=== PATIENT | male | born 1965 | race Caucasian/White ===

== ENCOUNTER 2018-08-12 15:27 | Inpatient (IN) | payer MEDICAID, OTHER ==
[~2018-08-12] VITALS: Ht 190.5 cm; Wt 80.0 kg
[2018-08-12 15:57] LABS: Basophils # (auto) 0.1 uL; Basophils % (auto) 1.2 % (0.0-2.0); Eosinophils # (auto) 0.1 uL; Eosinophils % (auto) 1.1 % (0.0-7.0); Hematocrit 48.9 % (41.0-53.0); Hemoglobin 16.4 g/dL (13.5-17.5); Lymphocytes # (auto) 1.2 uL; Lymphocytes % (auto) 18.3 % (10.0-50.0); Mean Corpuscular Hemoglobin 30.5 pg (28.0-32.0); Mean Corpuscular Hgb Conc. 33.5 g/dL (32.0-36.0); Mean Corpuscular Volume 90.9 fL (80.0-100.0); Monocytes # (auto) 0.8 uL; Monocytes % (auto) 12.7 % (0.0-12.0); Neutrophils # (auto) 4.2 uL; Neutrophils % (auto) 66.7 % (37.0-80.0); Nucleated Red Blood Cells % 0.1 %; Platelet Count (auto) 300 10^3/uL (140-450); Red Blood Cells 5.38 10^6/uL (4.5-5.90); Red Cell Distribution Width 14.9 % (11.8-14.3); White Blood Cell 6.3 10^3/uL (4.4-10.8)
[2018-08-12 16:24] LABS: Albumin 3.4 g/dL (3.4-5.0); Bilirubin, Total 1.5 mg/dL (0.2-1.0); Calcium 8.4 mg/dL (8.5-10.1); Magnesium 2.2 mg/dL (1.6-2.6); Potassium 4.5 mmol/L (3.5-5.1); Total Protein 6.7 g/dL (6.4-8.2)
[2018-08-12] MEDS ORDERED: ATOR20TA50 PO (17:28)
[2018-08-12] MEDS ORDERED: ENAL2.5T PO (17:28)
[2018-08-12] MEDS ORDERED: FURO40TA PO (17:28)
[2018-08-12] MEDS ORDERED: CAR3125T PO (17:28)
[2018-08-12] MEDS ORDERED: SODIUM CHLORIDE 0.9% 1,000 ML IV ONE (17:29)
[2018-08-12 19:03] LABS: INR 1.2 (0.9-1.15); Partial Thromboplastin Time 28.7 sec (23.78-33.04); Prothrombin Time 12.7 sec (9.27-12.13)
[2018-08-12 21:34] LABS: Urine Bacteria NONE SEEN /hpf (None Seen); Urine Blood Negative /uL (Negative); Urine Hyaline Cast FEW /lpf (0 - 2); Urine Mucus FEW (None Seen); Urine Specific Gravity 1.026 (1.001-1.035); Urine WBC 1 /hpf (0 - 3)
[2018-08-12 21:44] LABS: Amphetamine Screen, Urine POSITIVE (NEGATIVE); Barbiturate Scree,Urine NEGATIVE (NEGATIVE); Benzodiazephine Screen, Urine NEGATIVE (NEGATIVE); Cannabinoid Screen, Urine POSITIVE (NEGATIVE); Cocaine Screen, Urine NEGATIVE (NEGATIVE); Opiate Scree,Urine NEGATIVE (NEGATIVE); Phencyclidine Screen, Urine NEGATIVE (NEGATIVE)
[2018-08-12 22:05] LABS: Alcohol, Urine < 3.0 mg/dL (0-5)
[2018-08-12] MEDS ORDERED: ONDANSETRON HCL 4 MG/2 ML VIAL IV ONE (22:30)
[2018-08-12] MEDS ORDERED: MORPHINE SULFATE 4 MG/ML SYR/VIAL IV ONE (22:30)
[2018-08-12] MEDS ORDERED: guaiFENesin 200 MG/10 ML UD PO ONE (22:45)
[2018-08-13] MEDS ORDERED: ACETAMINOPHEN 500 MG TAB PO PRN (01:30)
[2018-08-13] MEDS ORDERED: ONDANSETRON HCL 4 MG/2 ML VIAL IV PRN (01:30)
[2018-08-13] MEDS ORDERED: IBUPROFEN 400 MG TAB PO PRN (01:30)
[2018-08-13 05:26] LABS: Basophils # (auto) 0.1 uL; Basophils % (auto) 1.1 % (0.0-2.0); Eosinophils # (auto) 0 uL; Eosinophils % (auto) 0.5 % (0.0-7.0); Hematocrit 46.7 % (41.0-53.0); Hemoglobin 15.3 g/dL (13.5-17.5); Lymphocytes % (auto) 16.8 % (10.0-50.0); Mean Corpuscular Hemoglobin 29.8 pg (28.0-32.0); Mean Corpuscular Hgb Conc. 32.7 g/dL (32.0-36.0); Monocytes # (auto) 0.7 uL; Monocytes % (auto) 11.6 % (0.0-12.0); Neutrophils # (auto) 4.2 uL; Nucleated Red Blood Cells % 0.1 %; Platelet Count (auto) 260 10^3/uL (140-450); Red Blood Cells 5.13 10^6/uL (4.5-5.90); Red Cell Distribution Width 15.3 % (11.8-14.3)
[2018-08-13 05:46] LABS: Calcium 7.9 mg/dL (8.5-10.1); Potassium 4.9 mmol/L (3.5-5.1)
[2018-08-13 05:48] LABS: BUN/Creatinine Ratio 24.8
[2018-08-13] MEDS: FUROSEMIDE 40 MG/4 ML VIAL IV SCH ×2 (07:30→18:00)
[2018-08-13] MEDS: CARVEDILOL 3.125 MG TAB PO SCH ×2 (07:40→18:00)
[2018-08-13] MEDS ORDERED: FUROSEMIDE 40 MG/4 ML VIAL IV SCH (10:00)
[2018-08-13] MEDS: ENALAPRIL MALEATE 2.5 MG TAB PO SCH (10:00)
[2018-08-13] MEDS ORDERED: INFLUENZA QUAD 2018-2019 0.5 ML SYRG IM ONE (10:30)
[2018-08-13] MEDS ORDERED: PNEUMOCOCCAL VACC POLYS 25 MCG/0.5 ML VIAL IM ONE (10:30)
[2018-08-13] MEDS: LORazepam 0.5 MG TAB PO PRN ×2 (10:53→19:13)
[2018-08-13 13:00] VITALS: BP 127/89
[2018-08-13 17:00] VITALS: BP 103/83
[2018-08-13] MEDS ORDERED: FUROSEMIDE 40 MG/4 ML VIAL IV ONE (20:00)
[2018-08-13] MEDS: LEVALBUTEROL HCL 1.25 MG/3 ML NEB NEB PRN (20:28)
[2018-08-13 21:19] LABS: BUN/Creatinine Ratio 20.8; Calcium 8.4 mg/dL (8.5-10.1)
[2018-08-13 21:30] LABS: Potassium 5.6 mmol/L (3.5-5.1)
[2018-08-13 21:48] VITALS: BP 114/65
[2018-08-13] MEDS ORDERED: ATORVASTATIN 20 MG TAB PO SCH (22:00)
[2018-08-13] MEDS ORDERED: DEXTROSE (50%) 50ML SYRG IV ONE (22:45)
[2018-08-13] MEDS ORDERED: DEXTROSE (50%) 50ML SYRG IV PRN (22:45)
[2018-08-13] MEDS ORDERED: SODIUM POLYSTYRENE SULF 15GM/60ML SUSP PO ONE (22:45)
[2018-08-13] MEDS ORDERED: InsuLIN REG 1unit/0.01ml Soln (100units/ml) IV ONE (22:45)
[2018-08-13] MEDS ORDERED: MORPHINE SULFATE 4 MG/ML SYR/VIAL IV ONE (22:45)
[2018-08-13 23:15] VITALS: BP 97/74
[2018-08-13] MEDS ORDERED: ETOMIDATE (2MG/ML) 20ML VIAL IV ONE (23:17)
[2018-08-13] MEDS ORDERED: SUCCINYLCHOLINE CHLORIDE 20 MG/ML 10ML VIAL IV ONE (23:17)
[2018-08-13] MEDS ORDERED: MIDAZOLAM DRIP 50 mg/50mL 0 ML IV ONE (23:18)
[2018-08-13 23:30] VITALS: BP 98/66
[2018-08-13] MEDS ORDERED: MIDAZOLAM DRIP 50 mg/50mL 50 ML IV SCH (23:44)
[2018-08-13 23:45] VITALS: BP 100/79
[2018-08-13] MEDS ORDERED: NOREPINEPHRINE 8 MG/250ML KIT 250 ML IV SCH (23:45)
[2018-08-14] VITALS (72 sets, daily range): BP systolic 74–133; BP diastolic 34–107
[2018-08-14] MEDS: ACCU-CHEK COMFORT CURVE STRIP VI SCH ×5 (01:00→03:00)
[2018-08-14 03:53] LABS: Basophils # (auto) 0.1 uL; Basophils % (auto) 0.6 % (0.0-2.0); Eosinophils # (auto) 0 uL; Eosinophils % (auto) 0.1 % (0.0-7.0); Hematocrit 47.7 % (41.0-53.0); Hemoglobin 15.7 g/dL (13.5-17.5); Lymphocytes # (auto) 0.8 uL; Lymphocytes % (auto) 8.6 % (10.0-50.0); Mean Corpuscular Hemoglobin 29.5 pg (28.0-32.0); Mean Corpuscular Hgb Conc. 32.8 g/dL (32.0-36.0); Mean Corpuscular Volume 89.9 fL (80.0-100.0); Monocytes # (auto) 1.4 uL; Monocytes % (auto) 15.7 % (0.0-12.0); Neutrophils # (auto) 6.9 uL; Nucleated Red Blood Cells % 0.1 %; Platelet Count (auto) 268 10^3/uL (140-450); Red Blood Cells 5.31 10^6/uL (4.5-5.90); Red Cell Distribution Width 14.8 % (11.8-14.3); White Blood Cell 9.2 10^3/uL (4.4-10.8)
[2018-08-14 04:12] LABS: Albumin 3.1 g/dL (3.4-5.0); BUN/Creatinine Ratio 26.1; Bilirubin, Total 1.7 mg/dL (0.2-1.0); Calcium 8.5 mg/dL (8.5-10.1); Potassium 5.4 mmol/L (3.5-5.1); Total Protein 5.5 g/dL (6.4-8.2)
[2018-08-14] MEDS: FUROSEMIDE 40 MG/4 ML VIAL IV SCH ×2 (06:32→18:00)
[2018-08-14] MEDS: CARVEDILOL 3.125 MG TAB PO SCH ×2 (08:44→18:00)
[2018-08-14] MEDS: ENALAPRIL MALEATE 2.5 MG TAB PO SCH (10:00)
[2018-08-14] MEDS: MORPHINE SULFATE 4 MG/ML SYR/VIAL IV PRN (11:26)
[2018-08-14] MEDS ORDERED: MIDODRINE HCL 10 MG TAB PO ONE (16:06)
[2018-08-14] MEDS: MIDODRINE HCL 10 MG TAB PO SCH (16:15)
[2018-08-14] MEDS ORDERED: PHENYLEPHRINE INJ 20 MG in D5W 5% 250 ML IV SCH (16:15)
[2018-08-14 21:46] LABS: Calcium 7.2 mg/dL (8.5-10.1); Magnesium 1.7 mg/dL (1.6-2.6); Potassium 4.2 mmol/L (3.5-5.1)
[2018-08-14] MEDS ORDERED: NALOXONE HCL 0.4 MG/ML VIAL IV ONE (23:15)
[2018-08-14] MEDS: MAGNESIUM SULFATE 1GM/100ML 100 ML IV SCH (23:20)
[2018-08-15] MEDS: MAGNESIUM SULFATE 1GM/100ML 100 ML IV SCH (00:38)
[2018-08-15 05:00] VITALS: BP 100/46
[2018-08-15] MEDS: FUROSEMIDE 40 MG/4 ML VIAL IV SCH ×2 (05:53→17:39)
[2018-08-15] MEDS: MIDODRINE HCL 10 MG TAB PO SCH ×3 (05:54→17:14)
[2018-08-15 06:02] LABS: Basophils # (auto) 0 uL; Basophils % (auto) 0.1 % (0.0-2.0); Eosinophils # (auto) 0.1 uL; Eosinophils % (auto) 0.6 % (0.0-7.0); Hematocrit 46.6 % (41.0-53.0); Hemoglobin 15.7 g/dL (13.5-17.5); Lymphocytes # (auto) 0.8 uL; Lymphocytes % (auto) 6.7 % (10.0-50.0); Mean Corpuscular Hemoglobin 30.1 pg (28.0-32.0); Mean Corpuscular Hgb Conc. 33.6 g/dL (32.0-36.0); Mean Corpuscular Volume 89.5 fL (80.0-100.0); Monocytes # (auto) 1.7 uL; Monocytes % (auto) 14.2 % (0.0-12.0); Neutrophils # (auto) 9.1 uL; Neutrophils % (auto) 78.4 % (37.0-80.0); Nucleated Red Blood Cells % 0.1 %; Platelet Count (auto) 277 10^3/uL (140-450); Red Cell Distribution Width 15.1 % (11.8-14.3); White Blood Cell 11.6 10^3/uL (4.4-10.8)
[2018-08-15 06:17] LABS: Magnesium 2.4 mg/dL (1.6-2.6); Phosphorus 4.5 mg/dL (2.5-4.90)
[2018-08-15 06:18] LABS: BUN/Creatinine Ratio 27.3; Bilirubin, Total 0.9 mg/dL (0.2-1.0); Calcium 7.9 mg/dL (8.5-10.1); Potassium 4.6 mmol/L (3.5-5.1); Total Protein 5.8 g/dL (6.4-8.2)
[2018-08-15 08:00] VITALS: BP 108/72
[2018-08-15 09:00] VITALS: BP 108/72
[2018-08-15] MEDS: MORPHINE SULFATE 4 MG/ML SYR/VIAL IV PRN (10:29)
[2018-08-15] MEDS: CARVEDILOL 3.125 MG TAB PO SCH ×2 (10:31→17:15)
[2018-08-15 13:00] VITALS: BP 98/76
[2018-08-15] MEDS ORDERED: AMIODARONE HCL 200 MG TAB PO ONE (13:30)
[2018-08-15 17:00] VITALS: BP 97/66
[2018-08-15] MEDS ORDERED: LEVALBUTEROL HCL 1.25 MG/3 ML NEB ONE (19:04)
[2018-08-15] MEDS: LEVALBUTEROL HCL 1.25 MG/3 ML NEB NEB PRN (19:14)
[2018-08-15] MEDS: LORazepam 0.5 MG TAB PO PRN (20:02)
[2018-08-15] MEDS: AMIODARONE HCL 200 MG TAB PO SCH (21:14)
[2018-08-15] MEDS: MAGNESIUM OXIDE 400 MG TAB PO SCH (21:14)
[2018-08-15 22:00] VITALS: BP 103/74
[2018-08-15] MEDS ORDERED: MAGNESIUM OXIDE 400 MG TAB PO SCH (22:00)
[2018-08-16 05:00] VITALS: BP 114/70
[2018-08-16] MEDS: LORazepam 0.5 MG TAB PO PRN (05:09)
[2018-08-16 05:42] LABS: Calcium 7.8 mg/dL (8.5-10.1); Potassium 4.3 mmol/L (3.5-5.1)
[2018-08-16] MEDS: MIDODRINE HCL 10 MG TAB PO SCH ×2 (05:47→12:00)
[2018-08-16] MEDS: FUROSEMIDE 40 MG/4 ML VIAL IV SCH (05:47)
[2018-08-16] MEDS: CARVEDILOL 3.125 MG TAB PO SCH (08:00)
[2018-08-16] MEDS: MAGNESIUM OXIDE 400 MG TAB PO SCH (08:51)
[2018-08-16 09:23] VITALS: BP 95/71
[2018-08-16] MEDS: AMIODARONE HCL 200 MG TAB PO SCH (10:00)
[2018-08-16 10:31] LABS: Hepatitis A Ab IgM Negative; Hepatitis B Core IgM Negative; Hepatitis B Surface Antigen Negative (Negative); Hepatitis C Antibody Negative (Negative)
[2018-08-16] MEDS ORDERED: FURO40TA PO (11:03)
[2018-08-16] MEDS ORDERED: AMI200T PO (11:03)
[2018-08-16] MEDS ORDERED: MAGN400T21 PO (11:03)
[2018-08-16 11:26] VITALS: BP 95/71
== END 2018-08-16 12:50 | disposition hospice, home (50) | DRG 194 ==
LOC: ER 15:27 → TELE 15:28 → TELE-WESTW 08-13 08:33 → ICU WEST 08-13 23:03 → TELE-WESTW 08-14 23:34
PROVIDERS: ADMIT Nurse Practitioner Family; ATTEND Internal Medicine
DX: I13.0 Hypertensive heart and chronic kidney disease with heart failure and stage 1 through stage 4 chronic kidney disease, or unspecified chronic kidney disease (principal); N17.0 Acute kidney failure with tubular necrosis; E87.2 Acidosis; E86.0 Dehydration; I42.0 Dilated cardiomyopathy; E44.1 Mild protein-calorie malnutrition; E87.5 Hyperkalemia; I48.91 Unspecified atrial fibrillation; N18.3 Chronic kidney disease, stage 3 (moderate); I50.43 Acute on chronic combined systolic (congestive) and diastolic (congestive) heart failure; R06.03 Acute respiratory distress; E78.5 Hyperlipidemia, unspecified; F12.90 Cannabis use, unspecified, uncomplicated; F15.10 Other stimulant abuse, uncomplicated; F17.200 Nicotine dependence, unspecified, uncomplicated; F41.9 Anxiety disorder, unspecified; F19.10 Other psychoactive substance abuse, uncomplicated; Z88.6 Allergy status to analgesic agent; Z68.22 Body mass index [BMI] 22.0-22.9, adult; Z23 Encounter for immunization; Z71.89 Other specified counseling
CPT/HCPCS: 36415; 36600; 71045; 71046; 76705; 78582; 80048; 80053; 80074; 80307; 81001; 82310; 82805; 82962; 83735; 83880; 84100; 84132; 84443; 84484; 85025; 85379; 85610; 85730; 87081; 90674; 93005; 93306; 94640; 96374; 96375; J0330; J1815; J2250; J2405; J7060

== ENCOUNTER 2024-09-16 03:08 | Inpatient (IN) | payer MEDICAID ==
[~2024-09-16] VITALS: Ht 190.5 cm; Wt 97.4 kg
[2024-09-16] VITALS (8 sets, daily range): BP systolic 100–120; BP diastolic 46–78; PULSE 107–124; RESP 14–22; TEMP 97.6–97.8; O2SAT 93–99
[~2024-09-16 03:08] MED LIST: AMIO200T13 PO; ATOR20TA50 PO; CAR3125T PO; ENAL1TAB42 PO; FURO1TAB31 PO; MAGN241.4 PO
--- NOTE | 2024-09-16 04:30 | ED.PDOC ---
History of Present Illness HPI Comments 58 y/o M, with a Hx of CHF, CKF, and tobacco and former EtOH and methamphetamine use, presents with c/o shortness of breath and cough for 1 month. Patient endorses on progressively worsening symptoms since initial unprovoked onset. Patient comments on further on being unable to sleep, due to excessive coughing, last night. Patient also c/o bilateral leg swelling following recent ED visit at [facility] for same symptoms 2x week ago s/p given "fluids" then. Patient admits to [facility] medication compliancy. Patient comments on no recent stress, injuries, sick contact, travel, spoiled food intake, or substance use/exposure aside from cigarettes use, yesterday. Patient endorses on no further relevant or pertinent past medical, surgical, or family Hx. Patient denies having any chest pain, hemoptysis, dyspnea, nausea, vomiting, fever, chills, or other associated symptoms or modifiers at this time. Chief Complaint: Shortness of Breath Time Seen by MD: 04:05 Reviewed Notes: Nurses Notes, Medications, Allergies Allergies: Coded Allergies: NO KNOWN ALLERGIES (Unverified , 12/08/23) Information Source: Patient Mode of Arrival: Ambulatory Severity: Moderate Timing: Months Duration: Since onset Prehospital treatment: None Past Medical History PAST MEDICAL HISTORY: CHF, CKF Surgical History: Denies all surgeries Family History Family History: Unknown Social History Smoker: Cigarettes Alcohol: Denies ETOH Use, Sober Drugs: Denies Drug Use, Methamphetamine (former use, last intake >10 years) Lives In: Home Constitutional: denies: chills, diaphoresis, fatigue, fever, malaise, sweats, weakness, others EENTM: denies: blurred vision, double vision, ear bleeding, ear discharge, ear drainage, ear pain, ear ringing, eye pain, eye redness, hearing loss, mouth pain, mouth swelling, nasal discharge, nose bleeding, nose congestion, nose pain, photophobia, tearing, throat pain, throat swelling, voice changes, others Respiratory: reports: cough, shortness of breath; denies: hemoptysis, orthopnea, SOB at rest, SOB with excertion, stridor, wheezing, others Cardiovascular: denies: chest pain, dizzy spells, diaphoresis, Dyspnea on exertion, edema, irregular heart beat, left arm pain, lightheadedness, palpitations, PND, syncope, others Gastrointestinal: denies: abdomen distended, abdominal pain, blood streaked bowels, constipated, diarrhea, dysphagia, difficulty swallowing, hematemesis, melena, nausea, poor appetite, poor fluid intake, rectal bleeding, rectal pain, vomiting, others Genitourinary: denies: burning, dysuria, flank pain, frequency, hematuria, incontinence, penile discharge, penile sore, pain, testicle pain, testicle swelling, urgency, others Neurological: denies: dizziness, fainting, headache, left sided numbness, left sided weakness, numbness, paresthesia, pre-existing deficit, right sided numbness, right sided weakness, seizure, speech problems, tingling, tremors, weakness, others Musculoskeletal: reports: others (bilateral leg swelling); denies: back pain, gout, joint pain, joint swelling, muscle pain, muscle stiffness, neck pain Integumetry: denies: bruises, change in color, change in hair/nails, dryness, laceration, lesions, lumps, rash, wounds, others Allergic/Immunocompromised: denies: Difficulty Healing, Frequent Infections, Hives, Itching, others Hematologic/Lymphatic: denies: anemia, blood clots, easy bleeding, easy bruising, swollen glands, others Endocrine: denies: excessive hunger, excessive sweating, excessive thirst, excessive urination, flushing, intolerance to cold, intolerance to heat, unexplained weight gain, unexplained weight loss, others Psychiatric: denies: anxiety, bipolar disorder, depression, hopeless, panic disorder, schizophrenia, sleepless, suicidal, others All Other Systems: Reviewed and Negative Physical Exam General Appearance: Moderate Distress HEENT: Normal ENT Inspection, Pharynx Normal, TMs Normal Neck: Full Range of Motion, Non-Tender, Normal, Normal Inspection Respiratory: Other (Coarse breath sounds) Cardiovascular: No Edema, No JVD, No Murmur, No Gallop, Normal Peripheral Pulses, Regular Rate/Rhythm Breast Exam: Deferred Gastrointestinal: No Organomegaly, Non Tender, No Pulsatile Mass, Normal Bowel Sounds, Soft Genitalia: Deferred Pelvic: Deferred Rectal: Deferred Extremities: Swelling (Mild bilateral lower extremity) Musculoskeletal : Apperance: Normal Neurologic: Alert, certified novell engineer II-XII nml as Tested, No Motor Deficits, Normal Affect, Normal Mood, No Sensory Deficits Cerebellar Function: NOT DONE Reflexes: NOT DONE Skin: Dry, Normal Color, Warm Peripheral Pulses: 3+ Radial (R), 3+ Radial (L) Lymphatic: No Adenopathy Was a procedure done? Was a procedure done?: No Differential Dx Considerations may include: CHF exacerbation, bronchitis, Covid19, PNA, URI, viral syndrome X-Ray, Labs, Meds, VS Vital Signs Date Time Temp Pulse Resp B/P (MAP) Pulse Ox O2 Delivery O2 Flow Rate FiO2 09/16/24 04:20 97.9 62 18 105/72 (83) 95 97.9 09/16/24 04:20 Room Air* 0 21 09/16/24 03:23 97.5 64 20 104/77 (86) 99 Patient alert. Complaining of shortness a breath. Vitals stable. Answering all questions. Bilateral lower extremity swelling. Was given Lasix. Used to use drugs. Counseled patient on effects of smoking cigarettes for 15 minutes. Reviewed his previous visit. EKG reviewed does not show any acute changes. Explained to the patient about the treatment plan. Time of 1ST Reevaluation: 04:35 Reevaluation 1ST: Unchanged Patient Education/Counseling: Diagnosis, Treatment Family Education/Counseling: No Family Present Departure 1 Departure Time of Disposition: 04:34 Impression: Primary Impression: CHF (congestive heart failure) Qualified Codes: I50.43 - Acute on chronic combined systolic (congestive) and diastolic (congestive) heart failure Disposition: ADMITTED INPATIENT Admit to: Med Surg Condition: Guarded Critical Care Note Critical Care Time?: No Stability Stability form required: No Heart Score Heart Score: Heart Score Response (Comments) Value History Moderate Suspicious 1 EKG Normal 0 Age 45-64 1 Risk Factors 1 or 2 risk factors 1 Troponin Normal limit 0 Total 3 I personally scribed for CHIP BANUELOS MD ([email or web address]) on 09/16/24 at 04:30. Electronically submitted by Robbin Acharya ([email or web address]). CHIP BANUELOS MD Sep 16, 2024 04:30
[2024-09-16] MEDS: FUROSEMIDE 40 MG/4 ML VIAL IV ONE (04:54)
[2024-09-16 04:55] LABS: Basophils # (auto) 0.1 10 ^3/uL (0-0.2); Basophils % (auto) 1.5 % (0.0-2.0); Eosinophils # (auto) 0.1 10 ^3/uL (0-0.8); Eosinophils % (auto) 1.8 % (0.0-7.0); Hematocrit 49.4 % (41.0-53.0); Hemoglobin 15.9 g/dL (13.5-17.5); Lymphocytes # (auto) 0.9 10 ^3/uL (0.4-5.4); Lymphocytes % (auto) 15.1 % (10.0-50.0); Mean Corpuscular Hemoglobin 30.5 pg (28.0-32.0); Mean Corpuscular Hgb Conc. 32.1 g/dL (32.0-36.0); Monocytes # (auto) 0.7 10 ^3/uL (0-1.3); Monocytes % (auto) 12.9 % (0.0-12.0); Neutrophils % (auto) 68.7 % (37.0-80.0); Platelet Count (auto) 198 10^3/uL (140-450); Red Cell Distribution Width 14.8 % (11.8-14.3); White Blood Cell 5.8 10^3/uL (4.4-10.8)
[2024-09-16 04:58] LABS: Chloride 106 mmol/L (98-107); Potassium 4.8 mmol/L (3.5-5.1); Sodium 137 mmol/L (136-145)
[2024-09-16 04:59] LABS: Anion Gap 6 (5-15); Calcium 9.6 mg/dL (8.7-10.4); Carbon Dioxide 25 mmol/L (20-31)
[2024-09-16 05:04] LABS: BUN/Creatinine Ratio 19.3 (10.0-20.0); Blood Urea Nitrogen 32 mg/dL (9-23); Glucose 90 mg/dL (74-106)
--- NOTE | 2024-09-16 06:05 | DVH ---
CHEST RADIOGRAPH Indication:sob Technique: Single frontal view of the chest was obtained Comparison: None FINDINGS: Lines and Tubes: None Lungs: Left basilar opacity. Pleura: No effusion. No pneumothorax. Cardiomediastinal contours: Cardiomegaly. Bones: No acute osseous abnormality. IMPRESSION: 1. Left basilar opacity which may reflect atelectasis or infiltrate. 2. Cardiomegaly.
[2024-09-16] MEDS ORDERED: TEMAZEPAM 15 MG CAP PO PRN (07:15)
[2024-09-16] MEDS ORDERED: ONDANSETRON HCL 4 MG/2 ML VIAL IV PRN (07:15)
[2024-09-16] MEDS ORDERED: ALBUTEROL SULF 2.5 MG/0.5ML(0.5%) NEB SOLN NEB PRN (07:15)
[2024-09-16] MEDS ORDERED: MORPHINE SULFATE INJ 2 MG/ml SYRG IV PRN (07:15)
[2024-09-16] MEDS ORDERED: NITROGLYCERIN 0.4 MG SL TAB SL PRN (07:15)
[2024-09-16] MEDS ORDERED: ACETAMINOPHEN 325 MG TAB PO PRN (07:15)
--- NOTE | 2024-09-16 07:22 | DVHHP2 ---
History of Present Illness Reason for Visit: Shortness of breath History of Present Illness 58-year-old male presents for evaluation of shortness for breath. Patient reports a two week history of worsening shortness of breath with a constant cough. He also reports bilateral lower extremity swelling. Denies fever or chills. No other acute complaints reported. Past Medical History Chronic kidney disease and congestive heart failure Past Surgical History Denies Family History Noncontributory Smoke: <1 pack per day ALCOHOL: rare Drugs: Other (Methamphetamine) Review of Systems Review of Systems Review of systems are currently negative otherwise addressed in HPI. Allergies: Coded Allergies: NO KNOWN ALLERGIES (Unverified , 12/08/23) Exam Vital Signs Vital Signs Date Time Temp Pulse Resp B/P (MAP) Pulse Ox O2 Delivery O2 Flow Rate FiO2 09/16/24 06:00 121 17 127/44 (71) 100 09/16/24 05:42 97.8 97.8 09/16/24 05:42 Room Air* 0 21 Exam Gen: 58-year-old male in mild distress Skin: Warm, dry, normal color and texture, no rash. HEENT: Normocephalic atraumatic, mucous membranes moist and pink. Neck: Cervical and supraclavicular nodes normal without enlargement, trachea is midline, thyroid gland is normal without masses. Pulmonary: Clear to auscultation and percussion bilaterally. Cardiac: Regular rate and rhythm. No murmur Abdomen: Soft, nontender, nondistended, bowel sounds present all 4 quadrants, no guarding, no rigidity, no organomegaly. Extremities: No cyanosis, clubbing, bilateral lower extremity edema Neuro: Cranial nerves II through XII grossly intact, normal affect and speech, no focal motor deficits. Labs/Xrays ORDERING PHYSICIAN: CHIP BANUELOS MD PROCEDURE(s): CXRP - CHEST PORTABLE REASON: sob ORDER NUMBER(s): [id number], ACCESSION NUMBER(s): [id number] CHEST RADIOGRAPH Indication:sob Technique: Single frontal view of the chest was obtained Comparison: None FINDINGS: Lines and Tubes: None Lungs: Left basilar opacity. Pleura: No effusion. No pneumothorax. Cardiomediastinal contours: Cardiomegaly. Bones: No acute osseous abnormality. IMPRESSION: 1. Left basilar opacity which may reflect atelectasis or infiltrate. 2. Cardiomegaly. Labs Test 09/16/24 04:30 Range/Units White Blood Count 5.8 4.4-10.8 10^3/uL Red Blood Count 5.20 4.5-5.90 10^6/uL Hemoglobin 15.9 13.5-17.5 g/dL Hematocrit 49.4 41.0-53.0 % Mean Corpuscular Volume 95.0 80.0-100.0 fL Mean Corpuscular Hemoglobin 30.5 28.0-32.0 pg Mean Corpuscular Hemoglobin Concent 32.1 32.0-36.0 g/dL Red Cell Distribution Width 14.8 H 11.8-14.3 % Platelet Count 198 140-450 10^3/uL Mean Platelet Volume 9.6 6.9-10.8 fL Neutrophils (%) (Auto) 68.7 37.0-80.0 % Lymphocytes (%) (Auto) 15.1 10.0-50.0 % Monocytes (%) (Auto) 12.9 H 0.0-12.0 % Eosinophils (%) (Auto) 1.8 0.0-7.0 % Basophils (%) (Auto) 1.5 0.0-2.0 % Neutrophils # (Auto) 4.0 1.6-8.6 10 ^3/uL Lymphocytes # (Auto) 0.9 0.4-5.4 10 ^3/uL Monocytes # (Auto) 0.7 0-1.3 10 ^3/uL Eosinophils # (Auto) 0.1 0-0.8 10 ^3/uL Basophils # (Auto) 0.1 0-0.2 10 ^3/uL Nucleated Red Blood Cells 0.0 % Sodium Level 137 136-145 mmol/L Potassium Level 4.8 3.5-5.1 mmol/L Chloride Level 106 98-107 mmol/L Carbon Dioxide Level 25 20-31 mmol/L Anion Gap 6 5-15 Blood Urea Nitrogen 32 H 9-23 mg/dL Creatinine 1.66 H 0.700-1.30 mg/dL Glomerular Filtration Rate Calc 47 >90 mL/min BUN/Creatinine Ratio 19.3 10.0-20.0 Serum Glucose 90 74-106 mg/dL Calcium Level 9.6 8.7-10.4 mg/dL Troponin I High Sensitivity 42 </=54 ng/L B-Type Natriuretic Peptide 3965.39 0-100 pg/mL Assessment/Plan Assessment/Plan Assessment Acute on chronic congestive heart failure Chronic kidney disease ? Community-acquired pneumonia Respiratory distress Plan Admit the patient to telemetry to the hospitalist Cardiology consultation Echocardiogram pending Resume home medications IV Lasix Continue treatment per orders. Plan discussed with: Patient My Orders Orders - LIS DIANE Procedure Category Date Status Time * Cardiology Consult CONS 09/16/24 Verified 07:13 Date of Service: Sep 16, 2024 Billing Provider: LIS DIANE Common Visit Codes: [id number] INP/OBS CARE (HIGH) LIS DIANE Sep 16, 2024 07:22
[2024-09-16 07:32] LABS: Urine Bacteria None Seen /hpf (None Seen)
[2024-09-16 07:45] LABS: Urine Blood Negative /uL (Negative); Urine Clarity Clear (Clear); Urine Color Yellow (Yellow); Urine Hyaline Cast MOD /lpf (0 - 2); Urine Protein, UAD 1+ (Negative); Urine Specific Gravity 1.015 (1.001-1.035); Urine Urobilinogen Normal (Negative); Urine WBC <1 /hpf (0 - 3)
[2024-09-16] MEDS ORDERED: AZITHROMYCIN 500MG/ 250ML 250 ML IV SCH (10:00)
[2024-09-16] MEDS: SACUBITRIL-VALSARTAN 24mg/26mg TAB PO SCH (10:22)
[2024-09-16] MEDS: METOPROLOL SUCCINATE XL 50 MG TAB PO SCH (10:23)
--- NOTE | 2024-09-16 14:30 | DVHPN2 ---
Subjective shortness of breath on exertion with non productive cough and bilateral leg edema , worsening the last two weeks. pt denies any chest pain .palpitations, dizziness, fevers,chills nausea or vomiting. Reviewed: Care Plan, H&P, Labs, Medications, Previous Orders, Radiology Changes from previous H/P or p: No Changes Cardiovascular: Edema (BILATERAL EDEMA ) Respiratory: Cough, Dry, Shortness of breath, SOB with excertion Psych: Anxiety Objective Vitals Vital Signs Date Time Temp Pulse Resp B/P (MAP) Pulse Ox O2 Delivery O2 Flow Rate FiO2 09/16/24 12:00 115 09/16/24 12:00 20 102/66 (78) 99 09/16/24 08:12 0.0 21 09/16/24 07:30 Nasal Cannula* 09/16/24 05:42 97.8 97.8 Exam presents to the ER with shortness of breath on exertion with non productive cough and bilateral leg edema , worsening the last two week General Appearance: Alert, Oriented X3, Cooperative, No acute distress HEENT: PERRLA Lungs: Clear to auscultation Cardiovascular: Normal S1, Normal S2, Other (TACHYCARDIA ) Abdomen: Normal bowel sounds, Soft Extremities: Other (EDEMA ) Psych/Mental Status: Mental status NL Medications Current Medications Medications Dose Ordered Sig/Adan Route Start Time Stop Time Status Last Admin Dose Admin Azithromycin 250 ml @ 125 mls/hr DAILY IV 09/16/24 10:00 Hold Albuterol 2.5 mg Q6HPRN PRN NEB 09/16/24 07:15 Furosemide 20 mg BIDD IV 09/16/24 18:00 Metoprolol Succinate 25 mg DAILY PO 09/16/24 10:00 09/16/24 10:23 25 MG Sacubitril/ Valsartan 1 tab BID PO 09/16/24 10:00 09/16/24 10:22 1 TAB Temazepam 15 mg QHSP PRN PO 09/16/24 07:15 Ondansetron HCl 4 mg Q4HP PRN IV 09/16/24 07:15 Acetaminophen 650 mg Q6HP PRN PO 09/16/24 07:15 Nitroglycerin 0.4 mg Q5MINP PRN SL 09/16/24 07:15 Morphine Sulfate 2 mg Q30M PRN IV 09/16/24 07:15 Alprazolam 0.25 mg [id number] PRN PO 09/16/24 13:45 UNV Laboratory Results Laboratory Tests 09/16/24 04:30 Chemistry Test 09/16/24 04:30 Calcium Level 9.6 mg/dL (8.7-10.4) Cardiac Markers Test 09/16/24 04:30 B-Type Natriuretic Peptide 3965.39 pg/mL (0-100) Urinalysis Test 09/16/24 06:13 Urine Color Yellow (Yellow) Urine Clarity Clear (Clear) Urine pH 5.0 (5.0-9.0) Urine Specific [place] 1.015 (1.001-1.035) Urine Protein 1+ (Negative) H Urine Ketones Negative (Negative) Urine Blood Negative /uL (Negative) Urine Nitrite Negative (Negative) Urine Bilirubin Negative (Negative) Urine Urobilinogen Normal mg/dL (Negative) Urine Leukocyte Esterase Negative /uL (Negative) Urine RBC None seen /hpf (0 - 3) Urine WBC <1 /hpf (0 - 3) Urine Squamous Epithelial Cells None seen /hpf (<5) Urine Bacteria None seen /hpf (None Seen) Urine Hyaline Casts Mod /lpf (0 - 2) Urine Glucose Normal mg/dL (Normal) Labs and/or images reviewed: Labs reviewed by me, Image(s) reviewed by me Assessment/Plan Assessment/Plan 58 [id number] with a history of chronic kidney disease , congestive heart failure , ETOH ,smoker and methamphetamines presents to the ER with shortness of breath on exertion with non productive cough and bilateral leg edema , worsening the last two weeks. pt denies any chest pain .palpitations, dizziness, fevers,chills nausea or vomiting. pt also has been restless in the ER doesn't want to sit or lay down. per nursing staff just walking around the ER. assessment: -acute respiratory failure -on room air - bilateral leg edema -tachycardia -afebrile -normal white count - acute systolic and diastolic heart failure -HFREF (EF10%) -chronic kidney disease stage 3 - elevated BNP 4,000 chest xray - IMPRESSION: 1. Left basilar opacity which may reflect atelectasis or infiltrate. 2. Cardiomegaly. plan: -consult cardiology -pending echo -Lasix diuresis -start betablocker -recommend chip/arb depending on blood pressure -recommend jardiance -recommend spirolactone -antibiotics -EKG -Xanax PRN for anxiety Plan discussed with: Patient, Other (NURSE) Date of Service: Sep 16, 2024 Billing Provider: ELENI FAYE CARD STRIPPER Common Visit Codes: [id number] INP/OBS CARE(HIGH) GEOFF JONES STUDENT CARD STRIPPER Sep 16, 2024 14:30
[2024-09-16] MEDS ORDERED: IPRATROPIUM BROM 0.5 MG/2.5ML INH SOL NEB PRN (16:15)
--- NOTE | 2024-09-16 16:27 | DVHSR ---
APPROVED REPORT EXAM: Two-dimensional and M-mode echocardiogram with Doppler and color Doppler. Blood Pressure: 113/78 mmHg INDICATION EF RISK FACTORS Height: 75, Weight: 209 DIMENSIONS LVDd7.8 (3.8-5.7cm)LA (2D)4.9 (1.9-4.0cm)Aortic Root3.6 (2.0-3.7cm) LVDs7.4 (2.5-4.0cm)LA (MM) (1.9-4.0cm)Aortic Cusp Exc1.8 (1.5-2.0cm) EF (%) 10.0 (55-70%)Rt. Atrium5.3 (1.9-4.0cm)Asc. Aorta cm IVSd1.0 (0.7-1.1cm)RV (D) (1.8-2.4cm) PWd1.1 (0.7-1.1cm) Mitral Valve MitralMitral Stenosis E wave1.11m/sMV Mean GR.2mmHg A wavem/sMV Peak GR.52mmHg E/A ratio0.02D MVAcm2 Aortic Valve Aortic ValveAortic Stenosis V10.35m/Shaan Mean GR.2mmHg V20.88m/Shaan Peak GR.3mmHg LVOT Diameter2.4 (1.8-2.4cm)Doppler AVA1.80cm2 Tricuspid Valve TR Velocity2.24m/s [id number] Other Information Technically limited study due to sitting straight up due to breathing. Conclusion Severely dilated left ventricle. Severely reduced left ventricular systolic function estimated eject ion fraction of 10%. There is a grade 3 restrictive filling pattern of diastolic dysfunction. Severely dilated right ventricle. Severely reduced right ventricular systolic function mild to moder ately elevated right ventricular systolic [id number] mm of mercury. Moderately dilated right and left atria. Severe torrential mitral valve regurgitation. Moderately severe tricuspid valve regurgitation. Aortic valve is mildly thickened. No significant stenosis or regurgitation. There is mild pulmonary valve regurgitation. No significant pericardial effusion was noted.
--- NOTE | 2024-09-16 17:03 | DVHINCON2 ---
Date Seen: Sep 16, 2024 Referring Physician David Rose NP Reason for Consultation CHF History of Present Illness Morris Villalta is a 58-year-old male patient who presents to ED with chief complaint of progressive dyspnea from functional class II to functional class IV which has been occurring for the past month, but got worse in the past few days associated with oppressive bilateral upper arm pain which radiates retrost ernally to chest intensity 5/10 with duration of 10 seconds. 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 Surgical history: 06/2024 coronary angiography with no stent placement Family history: Father and uncles had coronary artery disease and all b efore the age of 59 Social history: Lives in [place] with girlfriend in childhood friend. Smokes tobacco (16 pack-year history of smoking). Ex-ethanol abuser (four beers a day), recently stopped alcohol due to generalized malaise. 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 daily, Entresto one tablet b.i.d. per patient does not tolerate carvedilol. Band Presser: Dr. Drake Patient seen and examined at bedside. Currently feels better, is without oxygen requirement (saturates 99% in room air). Leg swelling has improved. Past Medical History Per HPI Past Surgical History Per HPI Family History: Colon cancer G8 MOTHER FH: multiple sclerosis G8 FATHER Family History Per HPI Social History Per HPI Allergies: Coded Allergies: NO KNOWN ALLERGIES (Unverified , 12/08/23) Current Medications Current Medications Medications (Trade) Dose Ordered Sig/Adan Route PRN Reason Start Time Stop Time Status Last Admin Azithromycin 250 ml @ 125 mls/hr DAILY IV 09/16/24 10:00 Hold Albuterol (Ventolin Medneb) 2.5 mg Q6HPRN PRN NEB SHORTNESS OF BREATH 09/16/24 07:15 09/16/24 16:20 DC Furosemide (Lasix Injection) 20 mg BIDD IV 09/16/24 18:00 09/16/24 16:20 DC Metoprolol Succinate (Toprol Xl) 25 mg DAILY PO 09/16/24 10:00 09/16/24 10:23 Sacubitril/ Valsartan (Entresto 24-26 Mg tab) 1 tab BID PO 09/16/24 10:00 09/16/24 10:22 Temazepam (Restoril) 15 mg QHSP PRN PO FOR INSOMNIA 09/16/24 07:15 Ondansetron HCl (Zofran) 4 mg Q4HP PRN IV NAUSEA / VOMITING 09/16/24 07:15 Acetaminophen (Tylenol Tablet) 650 mg Q6HP PRN PO PAIN SCALE 1-3 OR TEMP>100.4 09/16/24 07:15 Nitroglycerin (Ntrostat Sublingual) 0.4 mg Q5MINP PRN SL FOR CHEST PAIN 09/16/24 07:15 Morphine Sulfate 2 mg Q30M PRN IV FOR CHEST PAIN 09/16/24 07:15 Alprazolam (Xanax Tablet) 0.25 mg [id number] PRN PO ANXIETY 09/16/24 13:45 Furosemide (Lasix Injection) 40 mg BIDD IV 09/16/24 18:00 Levalbuterol HCl (Xopenex Medneb) 0.625 mg Q6HR PRN NEB SHORTNESS OF BREATH 09/16/24 16:15 Ipratropium [place] (Atrovent Medneb) 0.5 mg Q6HPRN PRN NEB SHORTNESS OF BREATH 09/16/24 16:15 Pantoprazole Sodium (Protonix Tablet) 40 mg DAILY@0600 PO 09/17/24 06:00 Review of Systems Per HPI Vital Signs Vital Signs Date Time Temp Pulse Resp B/P (MAP) Pulse Ox O2 Delivery O2 Flow Rate FiO2 09/16/24 16:37 97.8 108 20 120/46 (70) 99 97.8 09/16/24 08:12 0.0 21 09/16/24 07:30 Nasal Cannula* Physical Exam Patient lying in bed, in no acute distress General: Lucid, afebrile, mucosae are moist Cardiovascular: Normal S1 and S2. Holosystolic murmur best heard in apex and which radiates towards axilla intensity 3/6. No gallops or rubs Respiratory: Normal ventilation mechanics. Clear lung sounds on auscultation Abdomen: Soft, nontender, no organomegaly, normal bowel sounds MSK/skin: Mobilizes 4 limbs. Skin is dry and warm. Bilateral infrapatellar pitting edema +3 Neurological: Oriented in 3 spheres. No motor no sensitive deficits. Pupils are isocoric and reactive Labs/Diagnostic Data Labs Test 09/16/24 06:13 09/16/24 04:30 Range/Units Urine Color Yellow Yellow Urine Clarity Clear Clear Urine pH 5.0 5.0-9.0 Urine Specific [place] 1.015 1.001-1.035 Urine Protein 1+ H Negative Urine Ketones Negative Negative Urine Blood Negative Negative /uL Urine Nitrite Negative Negative Urine Bilirubin Negative Negative Urine Urobilinogen Normal Negative mg/dL Urine Leukocyte Esterase Negative Negative /uL Urine RBC None seen 0 - 3 /hpf Urine WBC <1 0 - 3 /hpf Urine Squamous Epithelial Cells None seen <5 /hpf Urine Bacteria None seen None Seen /hpf Urine Hyaline Casts Mod 0 - 2 /lpf Urine Glucose Normal Normal mg/dL White Blood Count 5.8 4.4-10.8 10^3/uL Red Blood Count 5.20 4.5-5.90 10^6/uL Hemoglobin 15.9 13.5-17.5 g/dL Hematocrit 49.4 41.0-53.0 % Mean Corpuscular Volume 95.0 80.0-100.0 fL Mean Corpuscular Hemoglobin 30.5 28.0-32.0 pg Mean Corpuscular Hemoglobin Concent 32.1 32.0-36.0 g/dL Red Cell Distribution Width 14.8 H 11.8-14.3 % Platelet Count 198 140-450 10^3/uL Mean Platelet Volume 9.6 6.9-10.8 fL Neutrophils (%) (Auto) 68.7 37.0-80.0 % Lymphocytes (%) (Auto) 15.1 10.0-50.0 % Monocytes (%) (Auto) 12.9 H 0.0-12.0 % Eosinophils (%) (Auto) 1.8 0.0-7.0 % Basophils (%) (Auto) 1.5 0.0-2.0 % Neutrophils # (Auto) 4.0 1.6-8.6 10 ^3/uL Lymphocytes # (Auto) 0.9 0.4-5.4 10 ^3/uL Monocytes # (Auto) 0.7 0-1.3 10 ^3/uL Eosinophils # (Auto) 0.1 0-0.8 10 ^3/uL Basophils # (Auto) 0.1 0-0.2 10 ^3/uL Nucleated Red Blood Cells 0.0 % Sodium Level 137 136-145 mmol/L Potassium Level 4.8 3.5-5.1 mmol/L Chloride Level 106 98-107 mmol/L Carbon Dioxide Level 25 20-31 mmol/L Anion Gap 6 5-15 Blood Urea Nitrogen 32 H 9-23 mg/dL Creatinine 1.66 H 0.700-1.30 mg/dL Glomerular Filtration Rate Calc 47 >90 mL/min BUN/Creatinine Ratio 19.3 10.0-20.0 Serum Glucose 90 74-106 mg/dL Calcium Level 9.6 8.7-10.4 mg/dL Troponin I High Sensitivity 42 </=54 ng/L B-Type Natriuretic Peptide 3965.39 0-100 pg/mL Assessment Acute respiratory failure Acute on chronic systolic congestive heart failure (HFrEF, LVEF 10%) 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 Indicated strict I&Os Completed echocardiogram: Severely dilated LV, LVEF 10%, grade 3 restrictive filling pattern of diastolic dysfunction, severely dilated RV, RVSP 34 mmHg, moderately dilated right and left atria, severe MR, moderate TR, aortic valve is mildly thickened. Optimize loading conditions Pending GDM T (currently only on Entresto and metoprolol, we will evaluate adding MRA and SGLT2i). Ordered PT/PTT, we will indicate anticoagulation due to run of atrial fibrillation in telemetry. Band Presser is Dr. Drake, had not place patient on ICD since his LVEF did improve with medication per patient (per patient he had LVEF 35%). Discussed plan with Dr. Starks, patient and nurses: Currently patient with fluid overload, we will probable atrial fibrillation seen in telemetry strip, continue with IV diuretics and optimizing medical treatment at this point. Patient has poor prognosis. Plan discussed with: Patient, Other (Nurses) Date of Service: Sep 16, 2024 Billing Provider: EVANGELISTA STARKS MD Cardiology Common Codes: [id number] INP/OBS CARE (High), [id number] CARE 30-74 MIN IZABELA TOMAS RESIDENT Sep 16, 2024 17:02
[2024-09-16] MEDS: FUROSEMIDE 20 MG/2 ML VIAL IV SCH (17:32)
[2024-09-16] MEDS ORDERED: FUROSEMIDE 20 MG/2 ML VIAL IV SCH (18:00)
[2024-09-16] MEDS: ALPRAZolam 0.25 MG TAB PO PRN (18:37)
[2024-09-16 18:55] LABS: INR 1.52 (0.9-1.15); Prothrombin Time 15.6 sec (9.3-11.8)
[2024-09-16 18:57] LABS: Magnesium 2.5 mg/dL (1.6-2.6)
[2024-09-16 18:58] LABS: Albumin 4.1 g/dL (3.2-4.8)
[2024-09-16 18:59] LABS: Bilirubin, Direct 0.9 mg/dL (<0.3); Bilirubin, Total 1.9 mg/dL (0.2-1.0); Phosphorus 4.9 mg/dL (2.4-5.1); Total Protein 6.3 g/dL (5.7-8.2)
[2024-09-16 19:02] LABS: Ferritin 67.6 ng/mL (22-322)
[2024-09-16 19:07] LABS: CRP High Sensitivity 1.05 mg/dL (<1.0)
[2024-09-16 20:09] LABS: Erythrocyte Sedimentation Rate 1 mm/hr (0-20)
[2024-09-17] VITALS (14 sets, daily range): BP systolic 81–128; BP diastolic 57–79; PULSE 97–112; RESP 17–20; TEMP 97.5–98.9; O2SAT 94–100
[2024-09-17 06:43] LABS: Basophils # (auto) 0.1 10 ^3/uL (0-0.2); Basophils % (auto) 1.4 % (0.0-2.0); Eosinophils # (auto) 0.1 10 ^3/uL (0-0.8); Eosinophils % (auto) 2.3 % (0.0-7.0); Hematocrit 46.5 % (41.0-53.0); Hemoglobin 15.5 g/dL (13.5-17.5); Lymphocytes # (auto) 1.1 10 ^3/uL (0.4-5.4); Lymphocytes % (auto) 20.6 % (10.0-50.0); Mean Corpuscular Hemoglobin 31.1 pg (28.0-32.0); Mean Corpuscular Hgb Conc. 33.4 g/dL (32.0-36.0); Mean Corpuscular Volume 93.2 fL (80.0-100.0); Monocytes # (auto) 0.9 10 ^3/uL (0-1.3); Monocytes % (auto) 17.6 % (0.0-12.0); Neutrophils % (auto) 58.1 % (37.0-80.0); Nucleated Red Blood Cells % 0.2 %; Platelet Count (auto) 187 10^3/uL (140-450); Red Blood Cells 4.99 10^6/uL (4.5-5.90); Red Cell Distribution Width 14.4 % (11.8-14.3); White Blood Cell 5.1 10^3/uL (4.4-10.8)
[2024-09-17] MEDS: PANTOPRAZOLE 40 MG TAB PO SCH (06:45)
[2024-09-17 07:01] LABS: Alanine Aminotransferase 111 U/L (7-40); Albumin 3.9 g/dL (3.2-4.8); Alkaline Phosphatase 75 U/L (46-116); Anion Gap 9 (5-15); Aspartate Aminotransferase 118 U/L (13-40); BUN/Creatinine Ratio 22.3 (10.0-20.0); Blood Urea Nitrogen 37 mg/dL (9-23); Calcium 9.4 mg/dL (8.7-10.4); Carbon Dioxide 24 mmol/L (20-31); Chloride 105 mmol/L (98-107); Glucose 65 mg/dL (74-106); Potassium 4.6 mmol/L (3.5-5.1); Sodium 138 mmol/L (136-145)
[2024-09-17 07:02] LABS: Bilirubin, Total 2.6 mg/dL (0.2-1.0); Total Protein 5.7 g/dL (5.7-8.2)
--- NOTE | 2024-09-17 07:09 | ECG ---
[facility] Test Date: 2024-09-16 Test Time: 03:24:58 Pat Name: GRETEL HERNANDEZ Department: ED Room: 0245T A Gender: M [employer]sembl[employer]: RENU : 1965 Requested By: ELENI FAYE Order Number: [id number] Reading MD: Gerry Diane Measurements Intervals [place] Rate: 121 P: 0 ID: 0 QRS: 108 QRSD: 114 T: 52 QT: 401 QTc: 569 Interpretive Statements Atrial fibrillation Anterior infarct, old Prolonged QT interval Electronically Signed On 09-19-2024 11:15:29 PST by Gerry Diane Please click the below link to view image of tracing.
--- NOTE | 2024-09-17 08:15 | DVHPNRES ---
Progress Note Date Seen: Sep 17, 2024 Resident Creating Document: IZABELA TOMAS RESIDENT Medical Necessity Reason Pt with a Central, PICC or Fol: No Subjective Review of Systems Morris Villalta is a 58-year-old male patient who presents to ED with chief complaint of progressive dyspnea from functional class II to functional class IV which has been occurring for the past month, but got worse in the past few days associated with oppressive bilateral upper arm pain which radiates retrosternally to chest intensity 5/10 with duration of 10 seconds. 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 Surgical history: 06/2024 coronary angiography with no stent placement Family history: Father and uncles had coronary artery disease and all before the age of 59 Social history: Lives in [place] with girlfriend in childhood friend. Smokes tobacco (16 pack-year history of smoking). Ex-ethanol abuser (four beers a day), recently stopped alcohol due to generalized malaise. 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 daily, Entresto one tablet b.i.d. per patient does not tolerate carvedilol. Tank Hoop Bender: Dr. Drake Patient seen and examined at bedside. Currently feels better, is without oxygen requirement (saturates 99% in room air). Leg swelling has improved. Objective vital signs Vital Sign Date Time Temp Pulse Resp B/P (MAP) Pulse Ox O2 Delivery O2 Flow Rate FiO2 09/17/24 06:45 107/72 09/17/24 05:00 97.5 101 19 95 97.5 09/16/24 20:00 Room Air* 0 21 Total Intake and Output 09/16/24 09/16/24 09/17/24 15:00 23:00 07:00 Intake Total 0 ml 750 ml Output Total 0 ml 500 ml Balance 0 ml 250 ml medications Current Medications Medications Dose Ordered Sig/Adan Route Start Time Stop Time Status Last Admin Dose Admin Azithromycin 250 ml @ 125 mls/hr DAILY IV 09/16/24 10:00 Hold Metoprolol Succinate 25 mg DAILY PO 09/16/24 10:00 09/16/24 10:23 25 MG Sacubitril/ Valsartan 1 tab BID PO 09/16/24 10:00 09/16/24 23:37 1 TAB Temazepam 15 mg QHSP PRN PO 09/16/24 07:15 Ondansetron HCl 4 mg Q4HP PRN IV 09/16/24 07:15 Acetaminophen 650 mg Q6HP PRN PO 09/16/24 07:15 Nitroglycerin 0.4 mg Q5MINP PRN SL 09/16/24 07:15 Morphine Sulfate 2 mg Q30M PRN IV 09/16/24 07:15 Alprazolam 0.25 mg [id number] PRN PO 09/16/24 13:45 09/16/24 18:37 0.25 MG Furosemide 40 mg BIDD IV 09/16/24 18:00 09/17/24 06:45 40 MG Levalbuterol HCl 0.625 mg Q6HR PRN NEB 09/16/24 16:15 Ipratropium [place] 0.5 mg Q6HPRN PRN NEB 09/16/24 16:15 Pantoprazole Sodium 40 mg DAILY@0600 PO 09/17/24 06:00 09/17/24 06:45 40 MG Examination Patient lying in bed, in no acute distress General: Lucid, afebrile, mucosae are moist Cardiovascular: Normal S1 and S2. Holosystolic murmur best heard in apex and which radiates towards axilla intensity 3/6. No gallops or rubs Respiratory: Normal ventilation mechanics. Clear lung sounds on auscultation Abdomen: Soft, nontender, no organomegaly, normal bowel sounds MSK/skin: Mobilizes 4 limbs. Skin is dry and warm. Bilateral infrapatellar pitting edema +3 Neurological: Oriented in 3 spheres. No motor no sensitive deficits. 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 Indicated strict I&Os Completed echocardiogram: Severely dilated LV, LVEF 10%, grade 3 restrictive filling pattern of diastolic dysfunction, severely dilated RV, RVSP 34 mmHg, moderately dilated right and left atria, severe MR, moderate TR, aortic valve is mildly thickened. Optimize loading conditions Pending GDM T (currently only on Entresto, metoprolol and empagliflozin, we will evaluate adding MRA). Initiated anticoagulation due to run of atrial fibrillation in telemetry. Tank Hoop Bender is Dr. Drake, had not place patient on ICD since his LVEF did improve with medication per patient (per patient he had LVEF 35%). IV antibiotics per hospitalist Discussed plan with Dr. Starks, patient and nurses: Currently patient with fluid overload, probable atrial fibrillation seen in telemetry strip on anticoagulation, continue with IV diuretics and optimizing medical treatment at this point. Patient had recent coronary angiography completed in [facility] which showed nonobstructive coronary arteries. Patient will benefit from life vest, have ordered device. Patient has poor prognosis. Plan discussed with: Patient, Other (Nurses) My Orders My Orders Orders - IZABELA TOMAS RESIDENT Procedure Category Date Status Time Furosemide Injection PHA 09/16/24 In Process (Lasix Injection) 18:00 Levalbuterol Hcl PHA 09/16/24 In Process (Xopenex Medneb) 16:15 Ipratropium Medneb PHA 09/16/24 In Process (Atrovent Medneb) 16:15 Pantoprazole Tablet PHA 09/17/24 In Process (Protonix Tablet) 06:00 Cont Med Neb Intial Tx RT 09/16/24 Logged 16:15 Med Neb Initial RT 09/16/24 Logged Treatment 16:15 Med Fer Sub Treatment RT 09/16/24 Logged 16:15 Inline Breath RT 09/16/24 Logged Treatment 16:15 Strict I & O ESTHER 09/16/24 In Process 16:57 Visit Coding Cardiology RES Date of Service: Sep 17, 2024 Billing Provider: EVANGELISTA STARKS MD Cardiology Common Codes: [id number] HOSP CARE(High, [id number] CARE 30-74 MIN IZABELA TOMAS RESIDENT Sep 17, 2024 08:15
[2024-09-17] MEDS: ENOXAPARIN SOD 100 MG/1 ML SYRINGE SC SCH (08:40)
[2024-09-17] MEDS: EMPAGLIFLOZIN 10 MG TAB PO SCH (08:41)
[2024-09-17] MEDS: SACUBITRIL-VALSARTAN 24mg/26mg TAB PO ONE (09:04)
[2024-09-17 12:02] LABS: Amphetamine Screen, Urine Neg (NEGATIVE); Barbiturate Scree,Urine Neg (NEGATIVE); Benzodiazephine Screen, Urine Neg (NEGATIVE); Cannabinoid Screen, Urine Neg (NEGATIVE); Cocaine Screen, Urine Neg (NEGATIVE); Opiate Scree,Urine Neg (NEGATIVE); Phencyclidine Screen, Urine Neg (NEGATIVE)
--- NOTE | 2024-09-17 12:02 | DVHPN2 ---
Subjective Patient reports that his shortness of breath has improved. Reviewed: Care Plan, H&P, Labs, Medications, Previous Orders, Radiology Changes from previous H/P or p: Changes Cardiovascular: Edema (BILATERAL EDEMA ) Respiratory: Cough, Dry, Shortness of breath, SOB with excertion Psych: Anxiety Objective Vitals Vital Signs Date Time Temp Pulse Resp B/P (MAP) Pulse Ox O2 Delivery O2 Flow Rate FiO2 09/17/24 10:00 97 Room Air 0.0 09/17/24 10:00 21 09/17/24 09:00 98.9 112 19 108/75 (86) 98.9 Intake/Output Intake and Output 09/17/24 07:00 Intake Total 750 ml Output Total 500 ml Balance 250 ml Intake Oral 750 ml Output Urine Total 500 ml # Bowel Movements 1 General Appearance: Alert, Oriented X3, Cooperative, No acute distress HEENT: PERRLA Lungs: Clear to auscultation Cardiovascular: Normal S1, Normal S2, Other (TACHYCARDIA ) Abdomen: Normal bowel sounds, Soft Extremities: Other (EDEMA ) Psych/Mental Status: Mental status NL Medications Current Medications Medications Dose Ordered Sig/Adan Route Start Time Stop Time Status Last Admin Dose Admin Azithromycin 250 ml @ 125 mls/hr DAILY IV 09/16/24 10:00 Hold Metoprolol Succinate 25 mg DAILY PO 09/16/24 10:00 09/17/24 08:40 25 MG Sacubitril/ Valsartan 1 tab BID PO 09/16/24 10:00 09/17/24 09:04 1 TAB Temazepam 15 mg QHSP PRN PO 09/16/24 07:15 Ondansetron HCl 4 mg Q4HP PRN IV 09/16/24 07:15 Acetaminophen 650 mg Q6HP PRN PO 09/16/24 07:15 Nitroglycerin 0.4 mg Q5MINP PRN SL 09/16/24 07:15 Morphine Sulfate 2 mg Q30M PRN IV 09/16/24 07:15 Alprazolam 0.25 mg [id number] PRN PO 09/16/24 13:45 09/16/24 18:37 0.25 MG Furosemide 40 mg BIDD IV 09/16/24 18:00 09/17/24 06:45 40 MG Levalbuterol HCl 0.625 mg Q6HR PRN NEB 09/16/24 16:15 Ipratropium [place] 0.5 mg Q6HPRN PRN [facility] 09/16/24 16:15 Pantoprazole Sodium 40 mg DAILY@0600 PO 09/17/24 06:00 09/17/24 06:45 40 MG Enoxaparin Sodium 90 mg Q12HR SC 09/17/24 10:00 09/17/24 08:40 90 MG Empaglifozin 10 mg DAILY PO 09/17/24 10:00 09/17/24 08:41 10 MG Spironolactone 25 mg DAILY PO 09/18/24 10:00 UNV Laboratory Results Laboratory Tests 09/17/24 05:50 Chemistry Test 09/16/24 18:20 09/17/24 05:50 Albumin 4.1 g/dL (3.2-4.8) 3.9 g/dL (3.2-4.8) Magnesium Level 2.5 mg/dL (1.6-2.6) Phosphorus Level 4.9 mg/dL (2.4-5.1) Total Protein 6.3 g/dL (5.7-8.2) 5.7 g/dL (5.7-8.2) Calcium Level 9.4 mg/dL (8.7-10.4) Coagulation Test 09/16/24 18:20 Prothrombin Time 15.6 sec (9.3-11.8) H Prothrombin Time INR 1.52 (0.9-1.15) H Activated Partial Thromboplast Time 29.0 SEC (24.5-34.5) Lipid panel Test 09/16/24 18:20 Cholesterol Level 105 mg/dL (< 200) HDL Cholesterol 33 mg/dL (40-59) L Triglycerides Level 64 mg/dL (< 150) LFT Test 09/16/24 18:20 09/17/24 05:50 Alanine Aminotransferase (ALT) 91 U/L (7-40) H 111 U/L (7-40) H Alkaline Phosphatase 82 U/L (46-116) 75 U/L (46-116) Aspartate Amino Transferase (AST) 93 U/L (13-40) H 118 U/L (13-40) H Direct Bilirubin 0.9 mg/dL (<0.3) H Total Bilirubin 1.9 mg/dL (0.2-1.0) H 2.6 mg/dL (0.2-1.0) H HgA1c, TSH Test 09/16/24 18:20 Hemoglobin A1c 6.2 % A1C (<5.7) H Thyroid Stimulating Hormone (TSH) 2.94 uIU/mL (0.55-4.78) Urinalysis Test 09/16/24 06:13 Urine Color Yellow (Yellow) Urine Clarity Clear (Clear) Urine pH 5.0 (5.0-9.0) Urine Specific [place] 1.015 (1.001-1.035) Urine Protein 1+ (Negative) H Urine Ketones Negative (Negative) Urine Blood Negative /uL (Negative) Urine Nitrite Negative (Negative) Urine Bilirubin Negative (Negative) Urine Urobilinogen Normal mg/dL (Negative) Urine Leukocyte Esterase Negative /uL (Negative) Urine RBC None seen /hpf (0 - 3) Urine WBC <1 /hpf (0 - 3) Urine Squamous Epithelial Cells None seen /hpf (<5) Urine Bacteria None seen /hpf (None Seen) Urine Hyaline Casts Mod /lpf (0 - 2) Urine Glucose Normal mg/dL (Normal) Labs and/or images reviewed: Labs reviewed by me, Image(s) reviewed by me Assessment/Plan Assessment/Plan Impression: -acute on chronic decompensated systolic heart failure -acute hypoxic respiratory failure -history of polysubstance abuse including tobacco, amphetamines, alcohol -CKD stage IIIA, probable cardiorenal syndrome -multifocal atrial tachycardia, paroxysmal atrial fibrillation Plan: -obtain medical records from [facility] regarding left heart catheterization performed several months ago -echocardiogram: Ejection fraction approximately 10% -UDS: Pending -titrate GDMT. -hold NOAC, continue Lovenox given undetermined if Cardiology we will perform left heart catheterization -IV diuresis -repeat labs, chest x-ray in a.m. Total time spent with patient discussing and formulating plan of care: 35 minutes. This medical document was created using an electronic medical record system with [employer] dictation system. Although this document has been carefully reviewed, there may still be some phonetic and typographical errors. These areas are purely typographical due to imperfections of the software programs, and do not reflect any compromise in the patient's medical care. Plan discussed with: Patient, Other (RN) My Orders Orders - ELENI FAYE [employer] Procedure Category Date Status Time Drug Screen LAB 09/16/24 In Process 13:33 Alprazolam Tablet PHA 09/16/24 In Process (Xanax Tablet) 13:45 * Cardiology Consult CONS 09/16/24 Transmitted 16:19 Mrsa Screen [place] 09/16/24 In Process 16:45 Spironolactone PHA 09/18/24 Logged (Aldactone) 10:00 Basic Metabolic Panel LAB 09/18/24 Verified 04:00 Chest Portable XY 09/18/24 Logged 04:00 Obtain Mr From Other ORDERS 09/17/24 Verified Facility 11:54 Date of Service: Sep 17, 2024 Billing Provider: ELENI FAYE NP Common Visit Codes: [id number] INP/OBS CARE(HIGH) ELENI FAYE NP Sep 17, 2024 12:02
[2024-09-17] MEDS: LEVALBUTEROL HCL 1.25 MG/3 ML NEB NEB PRN (16:28)
[2024-09-17] MEDS: APIXABAN 5 MG TAB PO SCH (21:18)
--- NOTE | 2024-09-18 08:45 | DVHDS2 ---
Discharge Summary Date of Admission Sep 16, 2024 at 07:13 Date of Discharge: Sep 18, 2024 Admitting Diagnosis Acute on chronic systolic heart failure Labs/Diagnostic Data: Laboratory Results Test 09/17/24 10:50 09/17/24 05:50 09/16/24 18:20 09/16/24 06:13 Urine Opiates Screen Neg (NEGATIVE) Urine Fentanyl Screen Neg (NEGATIVE) Urine Barbiturates Screen Neg (NEGATIVE) Urine Phencyclidine Screen Neg (NEGATIVE) Urine Amphetamines Screen Neg (NEGATIVE) Urine Benzodiazepines Screen Neg (NEGATIVE) Urine Cocaine Screen Neg (NEGATIVE) Urine Cannabinoids Screen Neg (NEGATIVE) White Blood Count 5.1 10^3/uL (4.4-10.8) Red Blood Count 4.99 10^6/uL (4.5-5.90) Hemoglobin 15.5 g/dL (13.5-17.5) Hematocrit 46.5 % (41.0-53.0) Mean Corpuscular Volume 93.2 fL (80.0-100.0) Mean Corpuscular Hemoglobin 31.1 pg (28.0-32.0) Mean Corpuscular Hemoglobin Concent 33.4 g/dL (32.0-36.0) Red Cell Distribution Width 14.4 % (11.8-14.3) Platelet Count 187 10^3/uL (140-450) Mean Platelet Volume 10.0 fL (6.9-10.8) Neutrophils (%) (Auto) 58.1 % (37.0-80.0) Lymphocytes (%) (Auto) 20.6 % (10.0-50.0) Monocytes (%) (Auto) 17.6 % (0.0-12.0) Eosinophils (%) (Auto) 2.3 % (0.0-7.0) Basophils (%) (Auto) 1.4 % (0.0-2.0) Neutrophils # (Auto) 3.0 10 ^3/uL (1.6-8.6) Lymphocytes # (Auto) 1.1 10 ^3/uL (0.4-5.4) Monocytes # (Auto) 0.9 10 ^3/uL (0-1.3) Eosinophils # (Auto) 0.1 10 ^3/uL (0-0.8) Basophils # (Auto) 0.1 10 ^3/uL (0-0.2) Nucleated Red Blood Cells 0.2 % Sodium Level 138 mmol/L (136-145) Potassium Level 4.6 mmol/L (3.5-5.1) Chloride Level 105 mmol/L (98-107) Carbon Dioxide Level 24 mmol/L (20-31) Anion Gap 9 (5-15) Blood Urea Nitrogen 37 mg/dL (9-23) Creatinine 1.66 mg/dL (0.700-1.30) Glomerular Filtration Rate Calc 47 mL/min (>90) BUN/Creatinine Ratio 22.3 (10.0-20.0) Serum Glucose 65 mg/dL (74-106) Calcium Level 9.4 mg/dL (8.7-10.4) Total Bilirubin 2.6 mg/dL (0.2-1.0) Aspartate Amino Transferase (AST) 118 U/L (13-40) Alanine Aminotransferase (ALT) 111 U/L (7-40) Alkaline Phosphatase 75 U/L (46-116) Total Protein 5.7 g/dL (5.7-8.2) Albumin 3.9 g/dL (3.2-4.8) Erythrocyte Sedimentation Rate 1 mm/hr (0-20) Prothrombin Time 15.6 sec (9.3-11.8) Prothrombin Time INR 1.52 (0.9-1.15) Activated Partial Thromboplast Time 29.0 SEC (24.5-34.5) Hemoglobin A1c 6.2 % A1C (<5.7) Lactic Acid Level 1.9 mmol/L (0.4-2.0) Phosphorus Level 4.9 mg/dL (2.4-5.1) Magnesium Level 2.5 mg/dL (1.6-2.6) Ferritin 67.6 ng/mL (22-322) Direct Bilirubin 0.9 mg/dL (<0.3) Ammonia 27 umol/L (11-32) C-Reactive Protein High Sensitivity 1.05 mg/dL (<1.0) Triglycerides Level 64 mg/dL (< 150) Cholesterol Level 105 mg/dL (< 200) LDL Cholesterol 65 mg/dL (< 100) HDL Cholesterol 33 mg/dL (40-59) Vitamin B12 Level 1438 pg/mL (211-911) Vitamin D 25-Hydroxy 22.0 ng/mL (30.0-100) Thyroid Stimulating Hormone (TSH) 2.94 uIU/mL (0.55-4.78) Urine Color Yellow (Yellow) Urine Clarity Clear (Clear) Urine pH 5.0 (5.0-9.0) Urine Specific [place] 1.015 (1.001-1.035) Urine Protein 1+ (Negative) Urine Ketones Negative (Negative) Urine Blood Negative /uL (Negative) Urine Nitrite Negative (Negative) Urine Bilirubin Negative (Negative) Urine Urobilinogen Normal mg/dL (Negative) Urine Leukocyte Esterase Negative /uL (Negative) Urine RBC None seen /hpf (0 - 3) Urine WBC <1 /hpf (0 - 3) Urine Squamous Epithelial Cells None seen /hpf (<5) Urine Bacteria None seen /hpf (None Seen) Urine Hyaline Casts Mod /lpf (0 - 2) Urine Glucose Normal mg/dL (Normal) Test 09/16/24 04:30 Troponin I High Sensitivity 42 ng/L (</=54) B-Type Natriuretic Peptide 3965.39 pg/mL (0-100) Other Laboratory Tests 09/17/24 05:50 Brief Hx & Hospital Course: History of Present Illness 58-year-old male presents for evaluation of shortness for breath. Patient reports a two week history of worsening shortness of breath with a constant cough. He also reports bilateral lower extremity swelling. Denies fever or chills. No other acute complaints reported. Course of hospitalization: Patient had cardiology consultation. Echocardiogram was performed which revealed ejection fraction of approximately 10 minutes. According to the patient, he reported having ejection fraction approximately 35% and has been seeing his heel sorter, Dr. Drake who also performed a coronary angiogram recently. Patient was started on IV diuresis, guideline based medical therapy. Patient had improvement with his hypoxia, we being weaned off oxygen. Patient also had adequate diuresis. Apparently, the patient was offered LifeVest yesterday which he refused. Later in the evening he decided to leave against medical advice. Total time spent with patient discussing and formulating plan of care: 35 minutes. This medical document was created using an electronic medical record system with [employer] system. Although this document has been carefully reviewed, there may still be some phonetic and typographical errors. These areas are purely typographical due to imperfections of the software programs, and do not reflect any compromise in the patient's medical care. Consults/Reason for consult Cardiology: Decompensated heart failure Condition at Discharge: Poor Final Diagnosis/Problems List Acute on chronic decompensated systolic heart failure Secondary Diagnosis: -acute hypoxic respiratory failure -history of polysubstance abuse including tobacco, amphetamines, alcohol -CKD stage IIIA, probable cardiorenal syndrome -multifocal atrial tachycardia, paroxysmal atrial fibrillation Discharge Disposition: TRIMBLE [id number] Discharge Statement: "Patient was advised to return to the ER or call 911 if any headaches, dizziness, shortness of breath, chest pain, abdominal pain, bleeding, fevers, or worsening of medical condition. Patient was counseled about treatment plan, medications, possible side effects, patientverbalized understanding. All questions were answered to the best of my ability. This discharge took greater then 30 minutes in planning, reviewing documentation, counseling the patient, and discussing with other team members." ASSESSMENT ASSESSMENT Assessment Date of Service: Sep 18, 2024 Billing Provider: ELENI FAYE NP Common Visit Codes: 22418-OTD/OBS DISCH DAY <30MIN ELENI FAYE NP Sep 18, 2024 08:45
[2024-09-18] MEDS ORDERED: SPIRONOLACTONE 25 MG TAB PO SCH (10:00)
== END 2024-09-17 23:06 | disposition left against medical advice (07) | DRG 133 ==
LOC: ER 03:08 → EDUNIT# 07:13 → TELE 07:13 → TELE-EAST 16:07
PROVIDERS: ADMIT Nurse Practitioner; ATTEND Nurse Practitioner Acute Care
DX: J96.01 Acute respiratory failure with hypoxia (principal); I50.23 Acute on chronic systolic (congestive) heart failure; J15.69 Pneumonia due to other Gram-negative bacteria; D68.59 Other primary thrombophilia; I42.7 Cardiomyopathy due to drug and external agent; I47.19 Other supraventricular tachycardia; I13.0 Hypertensive heart and chronic kidney disease with heart failure and stage 1 through stage 4 chronic kidney disease, or unspecified chronic kidney disease; J15.9 Unspecified bacterial pneumonia; Z53.29 Procedure and treatment not carried out because of patient's decision for other reasons; I48.0 Paroxysmal atrial fibrillation; F17.210 Nicotine dependence, cigarettes, uncomplicated; F41.9 Anxiety disorder, unspecified; N18.31 Chronic kidney disease, stage 3a; I25.10 Atherosclerotic heart disease of native coronary artery without angina pectoris; Z82.49 Family history of ischemic heart disease and other diseases of the circulatory system; Z82.0 Family history of epilepsy and other diseases of the nervous system; Z80.0 Family history of malignant neoplasm of digestive organs; T43.655A Adverse effect of methamphetamines, initial encounter; Y92.89 Other specified places as the place of occurrence of the external cause
CPT/HCPCS: 36415; 71045; 80048; 80053; 80061; 80076; 80307; 81001; 82140; 82306; 82607; 82728; 83036; 83605; 83735; 83880; 84100; 84443; 84484; 85025; 85610; 85652; 85730; 86141; 87081; 93005; 93306; 94640; G0378; J7042